=== PATIENT | male | born 1960 | race Two or more races ===

== ENCOUNTER 2018-09-09 12:21 | Emergency (ER) | payer OTHER ==
--- NOTE | 2018-09-09 12:37 | EDPHY ---
H & P Stated Complaint: cp Time Seen by Provider: 09/09/18 12:37 HPI/ROS: HPI CHIEF COMPLAINT: Right-sided chest discomfort. Only has pain when he breathes in takes a deep breath in. HISTORY OF PRESENT ILLNESS: This is a very pleasant 58-year-old male, does have a history of hypertension and hyperlipidemia, otherwise rather healthy, presents to the emergency room with right-sided chest discomfort. Describes sharp stabbing pain in 1 focal area on the right anterior chest. He denies any injury. He hurts worse when he breathes in when he takes deep breath in it gives him this sharp pain. This started Monday. He has noticed it throughout the weekend. He denies any left-sided chest pain, denies chest pressure or chest discomfort. Denies recent illness, denies fever vomiting denies productive cough. Main complaint right-sided chest discomfort sharp stabbing worse when he takes deep breath in. Patient denies any vomiting or diarrhea. Denies right upper quadrant abdominal pain. Past Medical History: Hypertension, hyperlipidemia Past Surgical History: Tooth extraction Social History: Denies drugs alcohol tobacco. 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 Family History: Noncontributory ROS REVIEW OF SYSTEMS: 10 Systems were reviewed and negative with the exception of the elements mentioned in the history of present illness. Exam Constitutional triage nursing summary reviewed, vital signs reviewed, awake/ alert. Signs stable. Appears well nontoxic. Eyes normal conjunctivae and sclera, EOMI, PERRLA. HENT normal inspection, atraumatic, moist mucus membranes, no epistaxis, neck supple/ no meningismus, no raccoon eyes. Respiratory clear to auscultation bilaterally, normal breath sounds, no respiratory distress, no wheezing. Cardiovascular rate normal, regular rhythm, no murmur, no edema, distal pulses normal. Gastrointestinal soft, non-tender, no rebound, no guarding, normal bowel sounds, no distension, no pulsatile mass. Genitourinary no CVA tenderness. Musculoskeletal no midline vertebral tenderness, full range of motion, no calf swelling, no tenderness of extremities, no meningismus, good pulses, neurovascularly intact. Skin pink, warm, & dry, no rash, skin atraumatic. Neurologic awake, alert and oriented x 3, AAOx3, moves all 4 extremities equally, motor intact, sensory intact, CN II-XII intact, normal cerebellar, normal vision, normal speech. Psychiatric normal mood/affect. Heme/Lymph/Immune no lymphadenopathy. Differential Diagnosis: Differential diagnosis includes but is not limited to: Pleurisy, pneumothorax, ACS, atypical chest pain, pneumothorax, pneumonia, pulmonary embolism, aortic dissection, congestive heart failure, tumor, musculoskeletal pain, esophageal pain, GERD, peptic ulcer disease, pancreatitis Medical Decision Making: Plan for this patient IV establishment IV fluid bolus , EKG, chest x-ray, court recording monitor, troponin, basic labs re-evaluate Toradol. Re-evaluation: EKG interpretation by me on record in [employer] system. Impression time of EKG 12:34 p.m. Sinus rhythm rate of 77 without any signs of acute ischemia. Given the patient's pleuritic right-sided sharp stabbing chest pain worse when he takes deep breath in will proceed with CT angiogram of the chest rule out PE. Discussed risk versus benefit of CT angiogram for right-sided pleuritic sharp stabbing pain. Long discussion with the patient given ongoing right-sided pleuritic pain he has agreed for CT angiogram of the chest. Will be premedicated as he had a remote history of possibly an allergy to contrast. Will give him Solu-Medrol and Benadryl. He did not have a history of anaphylaxis or throat swelling. He did developed a rash after contrast 1 time he thinks about [address] angiogram of the chest shows no evidence of pulmonary embolism. It does show mild cardiomegaly, as well as coronary artery disease. EKG interpretation by me on record in [employer] system. Impression time of EKG 1626, sinus rhythm rate of 72, no signs of acute ischemia or cardiac arrhythmia. Patient has 2 unremarkable nonischemic EKGs. 2-troponins over 4 hr in the emergency room. CT angiogram of the chest shows no evidence of PE. No evidence of PE but does shows plaque on his LAD. I discussed the results of a CT scan with him. The patient would like to go home. He does have right-sided chest pain improved after IV Toradol. Patient resting comfortably. He denies any shortness of breath or left-sided chest discomfort. We discussed return precautions he understands return emergency room if develops worsening chest pain shortness of breath or not doing well. He understands any also understands follow-up with his primary care doctor. He does report to me that when he goes to sit up or strain he does have some right-sided pain. He denies any left-sided chest pain, denies any chest pressure. Pain improved after IV Toradol. Only has pain when he takes deep breath in. I do recommend he follows up with his primary care doctor and Cardiology about his CT results. I have printed his CT results, discussed at length at bedside with him. He states he would like to go home denies any chest pain at this time. The patient arrived to the emergency room the right-sided sharp stabbing pleuritic pain only when he breathes in. His workup has been rather unremarkable here with 2-troponins and [address] angiogram negative for PE. Pain improved after IV Toradol the patient like to go home I am comfortable this. Should follow up with his marketing services coordinator about his CT scan. Return precautions discussed with him as well as his at bedside who is an RN here. 1705: I spoke with Dr. Eddy bailey discussed the case in detail about the cardiomegaly seen on his CT scan and plaque. Given that the patient has 2 normal EKGs, 2-troponins, has pleuritic type pain on the right side only when he takes a deep breath and he is comfortable with him going home. He would not pursue any further workup at this time. He believes this is most likely pleurisy. However he would like to follow up with him in the office this week. I have discussed this with the patient as at bedside are comfortable this plan. Source: Patient - Personal History Current Tetanus/Diphtheria Vaccine: Yes Current Tetanus Diphtheria and Acellular Pertussis (TDAP): Yes - Medical/Surgical History Hx Asthma: No Hx Chronic Respiratory Disease: No Hx Diabetes: No Hx Cardiac Disease: No Hx Renal Disease: No Hx Cirrhosis: No Hx Alcoholism: No Hx HIV/AIDS: No Hx Splenectomy or Spleen Trauma: No Other PMH: HTN, back surgery, CLIFF knee surgery - Social History Smoking Status: Never smoked Constitutional: Initial Vital Signs Temperature (C) 36.8 C 09/09/18 12:26 Heart Rate 77 09/09/18 12:26 Respiratory Rate 16 09/09/18 12:26 Blood Pressure 153/83 H 09/09/18 12:26 O2 Sat (%) 97 09/09/18 12:26 O2 Delivery Mode Room Air Allergies/Adverse Reactions: Iodinated Contrast- Oral and IV Dye [IV Dye, Iodine Containing] Allergy ( Intermediate, Verified 09/09/18 12:25) Hives Home Medications: Medication Instructions Recorded Benadryl 06/07/10 Lisinopril 09/09/18 Medical Decision Making - Diagnostics Imaging Results: Imaging Impressions Chest X-Ray 09/09/18 12:48 Impression: Cardiac enlargement without findings of merissa pulmonary edema. Chest/Thorax CTA 09/09/18 12:51 Impression: 1. No evidence of pulmonary embolus using CT protocol. 2. Mild cardiomegaly. 3. Noncalcified plaque near the origin of the left subclavian artery with only mild approximately 50% stenosis. 4. Mild hepatic steatosis. 5. Mild calcified plaque proximal LAD. Findings discussed with Ayo Arevalo MD at 15:19 hour, 09/09/2018. - Data Points Laboratory Results: Laboratory Results 09/09/18 12:35 09/09/18 12:35 09/09/18 09/09/18 09/09/18 16:29 12:40 12:35 WBC RBC Hgb Hct MCV MCH MCHC RDW Plt Count MPV Neut % (Auto) Lymph % (Auto) [place] % (Auto) Eos % (Auto) Baso % (Auto) Nucleat RBC Rel Count Absolute Neuts (auto) Absolute Lymphs (auto) Absolute Monos (auto) Absolute Eos (auto) Absolute Basos (auto) Absolute Nucleated RBC Immature Gran % Immature Gran # Sodium 139 mEq/L mEq/L (135-145) Potassium 4.1 mEq/L mEq/L (3.5-5.2) Chloride 104 mEq/L mEq/L (97-110) Carbon Dioxide 25 mEq/l mEq/l (22-31) Anion Gap 10 mEq/L mEq/L (6-14) BUN 17 mg/dL mg/dL (7-23) Creatinine 1.1 mg/dL mg/dL (0.7-1.3) Estimated GFR > 60 Glucose 120 mg/dL H mg/dL (70-100) Calcium 9.8 mg/dL mg/dL (8.5-10.4) Magnesium 2.0 mg/dL mg/dL (1.6-2.3) Total Bilirubin 0.6 mg/dL mg/dL (0.1-1.4) Conjugated Bilirubin 0.3 mg/dL mg/dL (0.0-0.5) Unconjugated Bilirubin 0.3 mg/dL mg/dL (0.0-1.1) AST 33 IU/L IU/L (17-59) ALT 61 IU/L IU/L (21-72) Alkaline Phosphatase 106 IU/L IU/L (38-126) POC Troponin I 0.00 ng/mL ng/mL 0.00 ng/mL ng/mL (0.00-0.08) (0.00-0.08) NT-Pro-B Natriuret Pep 22 pg/mL pg/mL (0-125) Total Protein 7.4 g/dL g/dL (6.3-8.2) Albumin 4.4 g/dL g/dL (3.5-5.0) 09/09/18 12:35 WBC 7.27 10^3/uL 10^3/uL (3.80-9.50) RBC 5.83 10^6/uL 10^6/uL (4.40-6.38) Hgb 17.1 g/dL g/dL (13.7-17.5) Hct 48.4 % % (40.0-51.0) MCV 83.0 fL fL (81.5-99.8) MCH 29.3 pg pg (27.9-34.1) MCHC 35.3 g/dL g/dL (32.4-36.7) RDW 12.3 % % (11.5-15.2) Plt Count 336 10^3/uL 10^3/uL (150-400) MPV 9.6 fL fL (8.7-11.7) Neut % (Auto) 70.9 % % (39.3-74.2) Lymph % (Auto) 22.6 % % (15.0-45.0) [place] % (Auto) 4.8 % % (4.5-13.0) Eos % (Auto) 1.0 % % (0.6-7.6) Baso % (Auto) 0.4 % % (0.3-1.7) Nucleat RBC Rel Count 0.0 % % (0.0-0.2) Absolute Neuts (auto) 5.16 10^3/uL 10^3/uL (1.70-6.50) Absolute Lymphs (auto) 1.64 10^3/uL 10^3/uL (1.00-3.00) Absolute Monos (auto) 0.35 10^3/uL 10^3/uL (0.30-0.80) Absolute Eos (auto) 0.07 10^3/uL 10^3/uL (0.03-0.40) Absolute Basos (auto) 0.03 10^3/uL 10^3/uL (0.02-0.10) Absolute Nucleated RBC 0.00 10^3/uL 10^3/uL (0-0.01) Immature Gran % 0.3 % % (0.0-1.1) Immature Gran # 0.02 10^3/uL 10^3/uL (0.00-0.10) Sodium Potassium Chloride Carbon Dioxide Anion Gap BUN Creatinine Estimated GFR Glucose Calcium Magnesium Total Bilirubin Conjugated Bilirubin Unconjugated Bilirubin AST ALT Alkaline Phosphatase POC Troponin I NT-Pro-B Natriuret Pep Total Protein Albumin Medications Given: Discontinued Medications Diphenhydramine HCl (Benadryl Injection) 25 mg IVP EDNOW ONE Stop: 09/09/18 12:59 Last Admin: 09/09/18 13:04 Dose: 25 mg Sodium Chloride (Ns) 1,000 mls @ 0 mls/hr IV EDNOW ONE; Wide Open PRN Reason: Protocol Stop: 09/09/18 12:49 Last Admin: 09/09/18 12:53 Dose: 1,000 mls Ketorolac Tromethamine (Toradol) 15 mg IVP EDNOW ONE Stop: 09/09/18 13:23 Last Admin: 09/09/18 13:32 Dose: 15 mg Methylprednisolone Sodium Succinate (Solu-Medrol) 125 mg IVP EDNOW ONE Stop: 09/09/18 12:59 Last Admin: 09/09/18 13:04 Dose: 125 mg Point of Care Test Results: Chemistry 09/09/18 09/09/18 16:29 12:40 POC Troponin I 0.00 ng/mL ng/mL 0.00 ng/mL ng/mL (0.00-0.08) (0.00-0.08) Departure - Departure Disposition: Home, Routine, Self-Care Clinical Impression: Pleuritic pain Condition: Good Instructions: Pleurisy (ED) Additional Instructions: 1. Return to the emergency room if you develop worsening chest pain. 2. Please follow up with your primary care doctor 3. Anti-inflammatory pain medicine. 4. Please follow up with Cardiology as well this week. 5. Return to the emergency room if worsening symptoms. Referrals: Anna Cuba MD [Primary Care Provider] - As per Instructions Hank Bailey MD [Medical Doctor] - As per Instructions
[2018-09-09] MEDS ORDERED: NS 1,000 ML IV ONE (12:48)
[2018-09-09 12:55] LABS: PLATELET COUNT 336 10^3/uL (150-400)
[2018-09-09] MEDS ORDERED: methylPREDNISolone SOD SUCC 125 MG/2 ML VIAL IVP ONE (12:58)
[2018-09-09] MEDS ORDERED: KETOROLAC 15 MG/1 ML SDV IVP ONE (13:22)
[2018-09-09] MEDS ORDERED: IOPAMIDOL (ISOVUE 370) 100 ML BTL IV ONE (13:58)
--- NOTE | 2018-09-09 14:54 | CPEKG ---
Test Reason : OPEN Blood Pressure : / mmHG Vent. Rate : 077 BPM Atrial Rate : 077 BPM P-R Int : 159 ms QRS Dur : 090 ms QT Int : 384 ms P-R-T Axes : 039 -12 054 degrees QTc Int : 435 ms Sinus rhythm Confirmed by Anthony Mcpherson ([id number]) on 09/09/2018 2:54:18 PM Referred By: PHYSICIAN ED Confirmed By:Anthony Mcpherson
[2018-09-09 17:17] VITALS: BP 149/84
--- NOTE | 2018-09-09 19:52 | CPEKG ---
Test Reason : OPEN Blood Pressure : / mmHG Vent. Rate : 072 BPM Atrial Rate : 072 BPM P-R Int : 165 ms QRS Dur : 089 ms QT Int : 393 ms P-R-T Axes : 022 -17 019 degrees QTc Int : 431 ms Sinus rhythm Borderline left axis deviation Confirmed by Ayo Arevalo ([id number]) on 09/09/2018 7:51:28 PM Referred By: Ayo Arevalo Confirmed By:Ayo Arevalo
== END 2018-09-09 17:17 | disposition home or self-care (01) ==
DX: R07.89 Other chest pain (principal); I10 Essential (primary) hypertension; E78.5 Hyperlipidemia, unspecified; E86.9 Volume depletion, unspecified
CPT/HCPCS: 84484-ER; 96374; J1200; J1885; J2930; Q9967